=== PATIENT | female | born 1965 | race Caucasian/White ===

== ENCOUNTER 2022-02-01 08:59 | Inpatient (IN) ==
[2022-02-01 09:28] LABS: Hemoglobin 9.4 g/dL (12.0-16.0); Mean Corpuscular Hemoglobin 30.8 pg (25-34); Mean Corpuscular Hgb Conc 33.6 g/dL (32-36); Mean Corpuscular Volume 91.8 fL (80-100); Mean Platelet Volume 9.8 fL (7.4-10.4); Nucleated RBC # (auto) 0.03 K/uL (0-0); Nucleated RBC % (auto) 0.3 %; Platelet Count 336 K/uL (130-400); RDW Coefficient of Variation 17.2 % (11.5-14.5); RDW Standard Deviation 57.9 fL (36.4-46.3); Red Blood Count 3.05 M/uL (4.2-5.4); White Blood Count 9.87 K/uL (4.8-10.8)
[2022-02-01] MEDS ORDERED: SODIUM CHLORIDE 0.9% 1000ML 1,000 ML IV SCH ×2 (09:30→19:56)
--- NOTE | 2022-02-01 09:37 | XRay Report ---
XR chest 1V portable CLINICAL HISTORY: weakness COMPARISON STUDY: No previous studies for comparison. FINDINGS: Lung volumes are normal. Lungs are clear. There is no pneumothorax or pleural effusion. Car diac size is normal. Mediastinal contours are normal. There is no evidence for pulmonary edema. Note is made of a possible displaced fracture of a lateral left lower rib, possibly the eighth rib. IMPRESSION: 1. No acute cardiopulmonary findings. 2. Possible displaced lateral left eighth rib fracture. ACT 112: Negative or not required by law. Electronically signed by: Delbert Ratliff M.D. 02/01/2022 9:36 AM
[2022-02-01 09:52] LABS: Basophils # (auto) 0.01 K/uL (0-0.2); Basophils % (auto) 0.1 %; Eosinophils # (auto) 0.05 K/uL (0-0.5); Eosinophils % (auto) 0.5 %; Immature Granulocytes # (auto) 0.03 K/uL (0.00-0.02); Immature Granulocytes % (auto) 0.3 %; Lymphocytes # (auto) 1.26 K/uL (1.2-3.4); Lymphocytes % (auto) 12.8 %; Monocytes # (auto) 0.85 K/uL (0.11-0.59); Monocytes % (auto) 8.6 %; Neutrophils # (auto) 7.67 K/uL (1.4-6.5); Neutrophils % (auto) 77.7 %
--- NOTE | 2022-02-01 10:05 | CT Scan Report ---
CT OF THE HEAD WITHOUT CONTRAST CLINICAL HISTORY: weakness of extremities, falls w [facility] 3 wks ago COMPARISON STUDY: No previous studies for comparison. CT DOSE: 958.25 mGy.cm TECHNIQUE: Helical axial images of the head were obtained without IV contrast. Automated exposure con trol was utilized for the study. A dose lowering technique was utilized adhering to the principles o f ALARA. FINDINGS: No acute intracranial hemorrhage or midline shift is present. Ventricular system is unremar kable. Basal cisterns are patent. There is mild asymmetric prominence of the extra-axial space overly ing the right frontal lobe. This measures 4 mm in thickness. Exam is mildly compromised by motion art ifact. No acute calvarial fracture is identified. IMPRESSION: 1. No acute intracranial hemorrhage. 2. Mild asymmetric prominence of the extra-axial space overlying the right frontal lobe. Although non specific, this could reflect a small chronic subdural hematoma or subdural hygroma. Short-term follow -up head CT in 48 to 72 hours is recommended for reevaluation. No midline shift. No mass effect. 3. No calvarial fracture. ACT 112: Negative or not required by law. Electronically signed by: Delbert Ratliff M.D. 02/01/2022 10:02 AM
[2022-02-01] MEDS ORDERED: MULTI-VITAMIN INFUSION 10 ML, THIAMINE HCL 100 MG, FOLIC ACID 1 MG in SODIUM CHLORIDE 0... IV ONE (10:09)
[2022-02-01 10:29] LABS: Alanine Aminotransferase 26 U/L (7-52); Albumin Globulin Ratio 1.1 (0.9-2); Albumin Level 3.7 gm/dl (3.4-5.0); Alkaline Phosphatase 139 U/L (34-104); Anion Gap 24 (3-11); Blood Urea Nitrogen 45 mg/dl (6-23); Calcium 8.8 mg/dl (8.5-10.1); Carbon Dioxide 20 mmol/L (21-32); Chloride 91 mmol/L (98-107); Creatinine Clr Calc Pharmacy 33.9 ml/min; Est GFR (African American) 36.1 ml/min; Est GFR (Non-African American) 31.1 ml/min; Globulin 3.5 gm/dl (2.5-4.0); Glucose 184 mg/dl (70-99(Fasting)); Magnesium 1.6 mg/dl (1.7-2.4); Sodium 135 mmol/L (136-145); Total Protein 7.2 gm/dl (6.0-8.3); Troponin I High Sensitivity 13.7 pg/ml (0-14)
[2022-02-01 10:33] LABS: Thyroid Stimulating Hormone 5.721 uIu/ml (0.300-4.500)
[2022-02-01 10:48] LABS: Influenza A virus by PCR Negative (Neg); Influenza B virus by PCR Negative (Neg); RSV by PCR Negative (Neg); SARS CoV2 RNA(COVID-19) InHosp NEGATIVE (Negative)
[2022-02-01 11:06] LABS: T4 Free Thyroxine 1.42 ng/dl (0.61-1.60)
[2022-02-01 12:12] LABS: INR 1.1 (0.9-1.1); Partial Thromboplastin Ratio 0.8; Partial Thromboplastin Time 21.8 Seconds (21.0-31.0); Prothrombin Time 11.4 Seconds (9.0-12.0)
[2022-02-01 12:50] LABS: Potassium 2.9 mmol/L (3.5-5.1)
[2022-02-01] MEDS: POTASSIUM CHLORIDE / WTR 10 MEQ/100 ML PLCT IV SCH ×4 (13:16→22:10)
--- NOTE | 2022-02-01 13:43 | History & Physical Report ---
Date of Service February 01, 2022 Assessment & Plan (1) High anion gap metabolic acidosis: Plan: Recent falls with generalized weakness. Workup revealed HAGMA with delta gap consistent with additional metabolic alkalosis. Lactate was elevated and likely the cause of her acid base issues. No OG present. UDS was negative. Doubt exogenous alcohol ingestion. Salicylate level pending. As biguanides can cause a lactic acidosis, and she just started her metformin one week ago, this may have caused the lactic acidosis and subsequent symptoms especially in the setting of IVA. She also recently started Topamax and carbonic anhydrase inhibitors also have metabolic acidosis and hypokalemia as a side effect. Per black box warning on metformin, risk factors for lactic acidosis include chronic alcohol use. Stop metformin and consider alternative agent on discharge, correct IVA with IVF overnight. Consider nephro consult for consideration of hemodialysis if labs not improved by morning. 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 (2) Adverse effect of biguanide oral hypoglycemic drug: Plan: Plan as above. (3) Metabolic alkalosis: Plan: plan as above. Unable to obtain ABG on patient despite multiple tries. (4) IVA (acute kidney injury): Plan: Likely pre-renal etiology. Normal PO intake and no diarrhea or vomiting reported but hasn't been feeling well for three weeks. Cont with IVF and repeat in am. (5) Hypokalemia: Plan: Likely related to possible poor PO intake vs alcohol vs hypomagnesemia. Cont supplementation to correct overnight. Monitor on telemetry. (6) Hypomagnesemia: Plan: Replete and repeat in am. (7) Alcohol abuse: Plan: AWSS monitoring scale in case of withdrawal which is not present. Last drink was reported 3 weeks ago. Banana bag given today and started daily thiamine and folic acid. Encouraged to stay sober. (8) Traumatic closed fracture of one rib of left side with minimal displacement with routine healing: Plan: Related to recent falls at home. PT/OT to assess abilities after electrolyte and acid/base correction. Pain control as needed. (9) Hypertension: Plan: chronic, losartan held in setting of IVA. Patient became hypotensive on the floor, responding to IVF. Cont to hold meds and trend BP q4h (10) DMII (diabetes mellitus, type 2): Plan: chronic, hold metformin, start basal/bolus insulin in hospital. A1C in am. (11) Migraine: Plan: Takes daily Topamax which she started last week, also. Hold Topamax in light of adverse effect of CAIs on worsening acidosis. This may also be causing/contribu ting to her hypokalemia. She unfortunately already received her evening dose prior to placing the order to hold. (12) Dyslipidemia: Plan: chronic, stable. Cont Simvastatin (13) Acid reflux: Plan: chronic, stable. Cont omeprazole. Notably PPIs can cause hypomagnesemia. (14) Anemia: Plan: Uncertain baseline as she is not seen in this area for primary care. She reports a normal colonoscopy 5 years ago. Iron studies ordered. No overt bleeding or indication for transfusion. Cont to follow. (15) Chronic subdural hematoma: Plan: Traumatic subdural hematoma from a fall 3 weeks ago, chronic appearing on imaging. Repeat head CT in 48 hours recommended. Currently she has no gross focal neurologic deficits and her symptoms of weakness and paresthesias are likley related to her acid base disorder from her medications above. Hold daily ASA 81mg as no absolute indication at this time and do not want to contribute to head bleed. (16) DVT prophylaxis: Plan: SCDs, hold chemoprophylaxis in setting of recent traumatic head bleed. Full Code Dispo-telemetry, then per PT/OT recommendations. Tiffany Stringer DO [facility] History of Present Illness Chief Complaint: weakness Primary Care Provider: Bran Sanders DO 56 yo F with fall one week ago, visiting from out of town presented with weakness. She is an alcoholic who reports quitting 3 weeks ago. Since that time she reports falling with trauma to her head 3 weeks ago, and then became progressively weak with numbness in her fingertips bilaterally and started using a walker to get around. This morning she fell again prompting presentation to the ER. After the fall today she cannot straighten her left elbow. She denies any stroke like symptoms including no blurred vision, headache, unilateral weakness, or speech or word finding issues. She reports starting her medications back again one week ago including losartan, metformin, topamax and ambien. Workup reveals high anion gap metabolic acidosis. Hypokalemia with K 2.9. Head CT with possible chronic subdural hematoma vs hygroma. CXR with possible displaced eighth rib. Lactate elevated. Possible ingestion toxic alcohol? IVA present. She has anemia with uncertain baseline H/H. She denies any active bleeding at this time. Allergies Allergy/AdvReac Type Severity Reaction Status Date / Time morphine Allergy Intermediate hives/vomit Unverified 02/01/22 12:43 ing Home Medications Medication Instructions Recorded Confirmed Type aspirin 81 mg tablet,delayed 81 mg PO QAM 02/01/22 02/01/22 History release diclofenac sodium 100 mg 100 mg PO HS 02/01/22 02/01/22 History tablet,extended release 24 hr galcanezumab-gnlm 120 mg/mL 120 mg SUBCUT MONTHLY 02/01/22 02/01/22 History subcutaneous pen injector (Emgality Pen) losartan 50 mg tablet 50 mg PO QAM 02/01/22 02/01/22 History metformin 500 mg tablet,extended 500 mg PO BID 02/01/22 02/01/22 History release 24 hr omeprazole 20 mg capsule,delayed 20 mg PO BID 02/01/22 02/01/22 History release simvastatin 40 mg tablet 40 mg PO HS 02/01/22 02/01/22 History topiramate 50 mg tablet 50 mg PO HS 02/01/22 02/01/22 History zolpidem 10 mg tablet 10 mg PO HS PRN 02/01/22 02/01/22 History Past Med/Surg History Medical History Acid reflux Alcohol abuse DMII (diabetes mellitus, type 2) Dyslipidemia Hypertension Migraine Surgical History H/O: hysterectomy S/P lateral meniscal repair right knee Family History Father Diabetes Mother Diabetes Social History Smoking Status: Never smoker Hx Alcohol Use: Yes Alcohol type: hard liquor Alcohol type Comment: vodka Alcohol Intake Frequency Comment: half bottle vodka per day Hx Substance Use: No Preferred Language: Lao Communication Ability: Effective Stone Breaker Required: No Beliefs That Will Affect Care: None marital status: Current Living Situation: Spouse Current Living Situation Comment: home with spouse Other Information That Helps Us Care for You: No Feels Safe at Home: Yes Safety Concerns: Feels Safe At This Time Assistive Devices: Walker Review of Systems Review of Systems: All systems were reviewed and negative except as indicated above in HPI. Physical Exam Physical Exam: CONSTITUTIONAL: WNWD, vitals as above, generally well- appearing, NAD EYES: EOMI bilaterally, PERRL, normal conjunctivae, no scleral icterus ENT: external ear and nose normal, oropharynx clear NECK: trachea midline, RESPIRATORY: clear to auscultation bilaterally, no crackles, rales or wheezes, normal respiratory effort CARDIOVASCULAR: regular rate and rhythm, S1 and 2 heard without murmurs, gallops or rubs, no JVD, no peripheral edema CHEST: inspection of chest was normal GASTROINTESTINAL: soft, nontender, ND, no guarding MUSCULOSKELETAL: strength 5/5 throughout, cannot straighten her left elbow completely, head is normocephalic and atraumatic, normal palpation of chest wall without tenderness SKIN: warm and dry, erythematous, scaly rash under her left breast that is not painful. Multiple areas of deep purple ecchymosis, hortencia on her right upper arm, and across her chest, and on her right patella. NEUROLOGIC: No facial palsy, no dysarthria. Touch, pain and proprioception normal. CN 2-12 grossly intact, no sensory deficit, normal cognition, normal speech, no tremor PSYCHIATRIC: alert cooperative and oriented to person, place and time. Euthymic mood, makes good eye contact, language grossly intact, recent and r emote memory grossly intact. Results & Data Results & Data ([facility]) Vital Signs (Past 12 Hours) Vital Signs Temp Pulse Resp BP Pulse Ox 02/01/22 13:00 68 16 113/72 99 02/01/22 12:00 93 H 17 120/68 100 02/01/22 11:19 79 16 113/72 98 02/01/22 11:00 82 18 113/72 100 02/01/22 10:16 98 H 24 116/74 99 02/01/22 09:30 106 H 18 101/66 97 02/01/22 09:22 101 H 20 96 02/01/22 09:13 37.3 C 107 H 20 96/65 L 100 Laboratory Results Short CBC 02/01/22 Range/Units Unknown WBC 9.87 (4.8-10.8) K/uL Hgb 9.4 L (12.0-16.0) g/dL Hct 28.0 L (37-47) % Plt Count 336 (130-400) K/uL BMP 02/01/22 02/01/22 11:15 Unknown Sodium 135 L Potassium 2.9 L TNP Chloride 91 L Carbon Dioxide 20 L BUN 45 H Creatinine 1.80 H Glucose 184 H Calcium 8.8 Liver Function 02/01/22 02/01/22 Range/Units 11:15 Unknown Total Bilirubin 1.0 (0.2-1.0) mg/dl AST 64 H TNP (13-39) U/L ALT 26 (7-52) U/L Alkaline Phosphatase 139 H (34-104) U/L Albumin 3.7 (3.4-5.0) gm/dl Diagnostic Findings Head CT 02/01/22 09:21 CT OF THE HEAD WITHOUT CONTRAST CLINICAL HISTORY: weakness of extremities, falls w [facility] 3 wks ago COMPARISON STUDY: No previous studies for comparison. CT DOSE: 958.25 mGy.cm TECHNIQUE: Helical axial images of the head were obtained without IV contrast. Automated exposure control was utilized for the study. A dose lowering technique was utilized adhering to the principles of ALARA. FINDINGS: No acute intracranial hemorrhage or midline shift is present. Ventricular system is unremarkable. Basal cisterns are patent. There is mild asymmetric prominence of the extra-axial space overlying the right frontal lobe. This measures 4 mm in thickness. Exam is mildly compromised by motion artifact. No acute calvarial fracture is identified. IMPRESSION: 1. No acute intracranial hemorrhage. 2. Mild asymmetric prominence of the extra-axial space overlying the right frontal lobe. Although nonspecific, this could reflect a small chronic subdural hematoma or subdural hygroma. Short-term follow-up head CT in 48 to 72 hours is recommended for reevaluation. No midline shift. No mass effect. 3. No calvarial fracture. ACT 112: Negative or not required by law. Electronically signed by: Delbert Ratliff M.D. 02/01/2022 10:02 AM Chest X-Ray 02/01/22 09:22 XR chest 1V portable CLINICAL HISTORY: weakness COMPARISON STUDY: No previous studies for comparison. FINDINGS: Lung volumes are normal. Lungs are clear. There is no pneumothorax or pleural effusion. Cardiac size is normal. Mediastinal contours are normal. There is no evidence for pulmonary edema. Note is made of a possible displaced fracture of a lateral left lower rib, possibly the eighth rib. IMPRESSION: 1. No acute cardiopulmonary findings. 2. Possible displaced lateral left eighth rib fracture. ACT 112: Negative or not required by law. Electronically signed by: Delbert Ratliff M.D. 02/01/2022 9:36 AM Code Status & VTE Plan VTE Prophylaxis Plan VTE Prophylaxis will be ordered: Yes
[2022-02-01 13:46] LABS: Appearance Urine Clear (Clear); Bacteria Urine Automated Negative (Negative); Bilirubin Urine Negative (Negative); Blood Urine Negative (Negative); Color Urine Yellow; Epithelial Cell Urine Auto 20-30 /lpf (0-5); Glucose Urine UA Negative (Negative); Ketones Urine Trace (Negative); Leukocyte Esterase Urine 1+ (Negative); Nitrite Urine Negative (Negative); Protein Urine Negative (Negative); RBC Urine Automated 0-4 /hpf (0-4); Specific Gravity Urine 1.013 (1.000-1.030); Urobilinogen Urine Negative (Negative)
[2022-02-01 14:05] LABS: Amphetamines+Metham, Urine Neg (Neg); Barbiturates, Urine Neg (Neg); Benzodiazepine, Urine Neg (Neg); Cocaine, Urine Neg (Neg); MDMA (Ecstacy), Urine Neg (Neg); Methadone, Urine Neg (Neg); Opiate, Urine Neg (Neg); Phencyclidine, Urine Neg (Neg)
[2022-02-01] MEDS ORDERED: MAGNESIUM SULFATE / D5W 1 GM/100 ML BAG IV STA (14:59)
[2022-02-01] MEDS ORDERED: POTASSIUM CHLORIDE CRTAB 20 MEQ TABCR PO STA ×3 (15:24→20:51)
[2022-02-01] MEDS ORDERED: GLUCAGON FOR INJ 1 MG VIAL SQ PRN (15:25)
[2022-02-01] MEDS ORDERED: GLUCOSE 10 TABS/TUBE PO PRN (15:25)
[2022-02-01] MEDS ORDERED: DEXTROSE 50% 50 ML SYRINGE IV PRN (15:25)
[2022-02-01] MEDS ORDERED: LORazepam 2 MG/1 ML VIAL IV PRN (15:25)
[2022-02-01] MEDS ORDERED: GLUCOSE 40% GEL 15 GM TUBE PO PRN (15:25)
[2022-02-01] MEDS ORDERED: CARBOHYDRATES FOR HYPOGLYCEMIA PO PRN (15:25)
[2022-02-01] MEDS: SODIUM CHLORIDE 0.9% 1000ML 1,000 ML IV SCH ×2 (15:56→23:36)
--- NOTE | 2022-02-01 15:56 | XRay Report ---
XR elbow LT 2V CLINICAL HISTORY: fall this am, cannot straighten, rule out fracture. Left elbow pain. COMPARISON STUDY: None. FINDINGS: No fracture or dislocation within the left elbow. No significant elbow effusion. Soft tissu es are unremarkable. IMPRESSION: No fracture or dislocation within the left elbow. ACT 112: Negative or not required by law. Electronically signed by: John Verde M.D. 02/01/2022 3:54 PM
--- NOTE | 2022-02-01 15:57 | XRay Report ---
XR wrist LT w scaphoid CLINICAL HISTORY: foosh injury with fall, rule out fracture. Left wrist pain. COMPARISON STUDY: None. FINDINGS: No fracture or dislocation within the left wrist. Mild soft tissue swelling. 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 IMPRESSION: No fracture or dislocation within the left wrist. ACT 112: Negative or not required by law. Electronically signed by: John Verde M.D. 02/01/2022 3:56 PM
[2022-02-01 16:23] LABS: BUN Creatinine Ratio 28.6 (10-20); Creatinine Clr Calc Pharmacy 43.6 ml/min; Est GFR (African American) 48.9 ml/min; Est GFR (Non-African American) 42.2 ml/min; Phosphorus 2.3 mg/dl (2.5-4.9); Potassium 2.4 mmol/L (3.5-5.1)
[2022-02-01] MEDS: MAGNESIUM SULFATE / D5W 1 GM/100 ML BAG IV SCH ×2 (16:57→18:46)
[2022-02-01] MEDS: INSULIN ASPART PER UNIT SC SCH ×2 (17:34→21:28)
[2022-02-01 18:32] LABS: Chloride Random Urine < 15 mmol/L; Potassium Random Urine 17.2 mmol/L; Sodium Random Urine 12 mmol/L
[2022-02-01] MEDS ORDERED: SODIUM CHLORIDE 0.9% 1000ML 500 ML IV ONE (18:35)
--- NOTE | 2022-02-01 19:02 | Emergency Department Note ---
Impression & Plan Hypokalemia, High anion gap metabolic acidosis, Traumatic closed fracture of one rib of left side with minimal displacement with routine healing, IVA (acute kidney injury), Metabolic alkalosis ED Provider Note CHIEF COMPLAINT: Fall, weakness, tingling of the upper and lower extremities HISTORY OF PRESENT ILLNESS: This 56 yo female patient presents to the emergency department with complaints of a fall, weakness of the upper and lower extremities with tingling to the toes bilaterally. Patient states 3 weeks ago she fell and hit her head while she was in the shower. She believes that she lost consciousness at that time. She woke up and was able to get herself into the bed. She states she is visiting from out of town to help her mother. She states she came thinking she was going to be here for 2 days and ran out of her medications. She was off of her medications for at least 1 week until she had her drive them to the area. Patient states she does drink vodka daily, approximately one half of a bottle with seltzer water. She states she stopped drinking vodka suddenly but denies any withdrawal symptoms. She admits to some vomiting and diarrheal type symptoms but felt as though her body was just "adjusting to being back on the medications." Patient's here today because she had another fall. She did hit her head but denies loss of consciousness. She denies any neck or upper back pain. Patient denies any ingestions of other substances including alcohol use. She denies any fever, chest pain, shortness of breath, chest pain, abdominal pain and urinary symptoms. REVIEW OF SYSTEMS: A review of systems was performed with positives and pertinent negatives listed in the history of present illness. 10 systems were reviewed and are otherwise negative. ALLERGIES: see below MEDICATIONS: see below PMH: see below SOCIAL HISTORY: see below DDx: Infection, dehydration, metabolic abnormality, hypo/hyperglycemia, electrolyte disturbance, anemia, hypoxia, cardiac sources, intracerebral event, toxicologic, neurologic, as well as other pathologies. PHYSICAL EXAM: Vital signs reviewed. General: Chronically ill appearing 56 yo female, in no significant distress. HEENT: No scleral icterus, PERRLA, neck supple. Atraumatic. Cardiovascular: Regular rate and rhythm, no extra sounds. Pulmonary: Clear to auscultation bilaterally, normal work of breathing. Abdomen: Soft, nontender, nondistended, positive bowel sounds. Musculoskeletal: Atraumatic, no peripheral edema. Neurologic: Patient awake alert and oriented x 3, speech is clear. Equal strength in all 4 extremities. Cranial nerves II through XII are grossly intact. Skin: Warm, dry, yeast dermatitis type rash under the left breast. Bruising noted to the left anterior chest wall. Additional bruising noted to the left lower extremity anteriorly EMERGENCY DEPARTMENT COURSE/MDM: This patient was evaluated and appeared to be in no significant distress. Vital signs are noted to be stable. Patient's physical examination reveals a fairly deconditioned woman. IV access was obtained and laboratory work was drawn. Given her history of daily alcohol intake the patient was given a banana bag. CT imaging of the head was performed and reveals a small subdural versus hygroma. It seems to be clinically insignificant at this time however repeat CT is recommended in 48 to 72 hours to ensure stability. Patient's laboratory work is concerning for elevated lactate of 2.3, potassium of 2.9, magnesium of 1.6 and a phosphorus of 2.3, anemia with hgb of 9.4, with an elevated anion gap and presumed IAV. Pt has no previous records available. Given the above, patient was asked about toxic alcohol ingestion which she denied. Urine and serum osmoles were added to the patient's laboratory work. Patient was repleted with IV potassium chloride. Case was discussed with the [facility] hospitalist to has requested a blood gas. The etiology of the patient's anion gap elevation, weakness and electrolyte disturbance is unclear at this time. MONITORING: An order for cardiac monitoring was placed and the patient is noted to be in a sinus tachycardia at 106 beats per minute. RADIOLOGY: See below EKG: Sinus tachycardia 109 bpm. Prolonged QTC interval at [address] and T wave abnormality. No PVC, no PAC. No previous for comparison. DISPOSITION: Admit Past Med/Surg History Medical History Acid reflux Alcohol abuse DMII (diabetes mellitus, type 2) Dyslipidemia Hypertension Migraine Surgical History H/O: hysterectomy S/P lateral meniscal repair right knee Family History Father Diabetes Mother Diabetes Social History Smoking Status: Never smoker Hx Alcohol Use: Yes Alcohol type: hard liquor Alcohol type Comment: vodka Alcohol Intake Frequency Comment: half bottle vodka per day Hx Substance Use: No Preferred Language: Slovenian Communication Ability: Effective Anesthesiologist Assistant Certified Required: No Beliefs That Will Affect Care: None marital status: Current Living Situation: Spouse Current Living Situation Comment: home with spouse Other Information That Helps Us Care for You: No Feels Safe at Home: Yes Safety Concerns: Feels Safe At This Time Assistive Devices: Walker Allergies Allergies Allergy/AdvReac Type Severity Reaction Status Date / Time morphine Allergy Intermediate hives/vomit Unverified 02/01/22 12:43 ing Home Meds Home Medications Medication Instructions Recorded Confirmed aspirin 81 mg tablet,delayed 81 mg PO QAM 02/01/22 02/01/22 release diclofenac sodium 100 mg 100 mg PO HS 02/01/22 02/01/22 tablet,extended release 24 hr galcanezumab-gnlm 120 mg/mL 120 mg SUBCUT MONTHLY 02/01/22 02/01/22 subcutaneous pen injector (Emgality Pen) losartan 50 mg tablet 50 mg PO QAM 02/01/22 02/01/22 metformin 500 mg tablet,extended 500 mg PO BID 02/01/22 02/01/22 release 24 hr omeprazole 20 mg capsule,delayed 20 mg PO BID 02/01/22 02/01/22 release simvastatin 40 mg tablet 40 mg PO HS 02/01/22 02/01/22 topiramate 50 mg tablet 50 mg PO HS 02/01/22 02/01/22 zolpidem 10 mg tablet 10 mg PO HS PRN 02/01/22 02/01/22 Results & Data (ED) Vital Signs Vital Signs - 24 hr 02/01/22 09:13 02/01/22 09:22 02/01/22 09:30 Temperature 37.3 C Temperature Source Oral Pulse Rate 107 H 101 H 106 H Pulse Rate from SpO2 Sensor 107 H Pulse Rhythm Regular Regular Pulse Strength Normal Respiratory Rate 20 20 18 Respiratory Effort / Characteristics Non-Labored Spontaneous Respiratory Depth Normal Respiratory Pattern Regular Blood Pressure 96/65 L 101/66 Blood Pressure Mean 75 77 Blood Pressure Position Sitting Pulse Oximetry 100 96 97 Oxygen Delivery Method Room Air Room Air Sepsis Recent Fever Within 48 Hours No Sepsis New/Unexplained Change in Mental Status No Sepsis Action Taken by Nursing No Action Required 02/01/22 10:16 02/01/22 11:00 02/01/22 11:19 Temperature Temperature Source Pulse Rate 98 H 82 79 Pulse Rate from SpO2 Sensor 101 H Pulse Rhythm Pulse Strength Respiratory Rate 24 18 16 Respiratory Effort / Characteristics Respiratory Depth Respiratory Pattern Blood Pressure 116/74 113/72 113/72 Blood Pressure Mean 88 85 85 Blood Pressure Position Pulse Oximetry 99 100 98 Oxygen Delivery Method Room Air Sepsis Recent Fever Within 48 Hours Sepsis New/Unexplained Change in Mental Status Sepsis Action Taken by Nursing 02/01/22 12:00 02/01/22 13:00 Temperature Temperature Source Pulse Rate 93 H 68 Pulse Rate from SpO2 Sensor 91 H Pulse Rhythm Pulse Strength Respiratory Rate 17 16 Respiratory Effort / Characteristics Respiratory Depth Respiratory Pattern Blood Pressure 120/68 113/72 Blood Pressure Mean 85 85 Blood Pressure Position Pulse Oximetry 100 99 Oxygen Delivery Method Sepsis Recent Fever Within 48 Hours Sepsis New/Unexplained Change in Mental Status Sepsis Action Taken by Long-Term Medications Current Medication List: was personally reviewed by me Laboratory Data Attestation: I reviewed the patient's lab results. Result diagrams: 02/01/22 Unknown 02/01/22 Unknown Lab Results 02/01/22 02/01/22 02/01/22 Range/Units 09:25 09:25 10:02 PT (9.0-12.0) Seconds INR (0.9-1.1) APTT (21.0-31.0) Seconds PTT Ratio Potassium (3.5-5.1) mmol/L Osmolality 297 (280-300) mOsm/kg Lactate (0.4-2.0) mmol/L AST (13-39) U/L Total Creatine Kinase 53 (26-192) U/L Urine Color Urine Appearance (Clear) Urine pH (4.5-7.5) Ur Specific [place] (1.000-1.030) Urine Protein (Negative) Urine Glucose (UA) (Negative) Urine Ketones (Negative) Urine Blood (Negative) Urine Nitrite (Negative) Urine Bilirubin (Negative) Urine Urobilinogen (Negative) Ur Leukocyte Esterase (Negative) Urine WBC (Auto) (0-5) /hpf Urine RBC (Auto) (0-4) /hpf U Hyaline Cast (Auto) (0-5) /lpf U Epithel Cells (Auto) (0-5) /lpf Urine Bacteria (Auto) (Negative) Urine Osmolality (500-800) mOsm/kg Urine Opiates Screen (Neg) Ur Methadone, Qual (Neg) Urine Barbiturates (Neg) Ur Phencyclidine (PCP) (Neg) U Amphetamin/Meth Scrn (Neg) MDMA (Ecstasy) Screen (Neg) U Benzodiazepines Scrn (Neg) Ur Cocaine Metabolite (Neg) U Marijuana (THC) Screen (Neg) Ethyl Alcohol mg/dL (<10.0) mg/dl SARS-CoV-2 (PCR) NEGATIVE (Negative) Influenza Type A (PCR) Negative (Neg) Influenza Type B (PCR) Negative (Neg) RSV (RT-PCR) Negative (Neg) 02/01/22 02/01/22 02/01/22 Range/Units 11:15 11:15 11:15 PT 11.4 (9.0-12.0) Seconds INR 1.1 (0.9-1.1) APTT 21.8 (21.0-31.0) Seconds PTT Ratio 0.8 Potassium 2.9 L (3.5-5.1) mmol/L Osmolality (280-300) mOsm/kg Lactate (0.4-2.0) mmol/L AST 64 H (13-39) U/L Total Creatine Kinase (26-192) U/L Urine Color Urine Appearance (Clear) Urine pH (4.5-7.5) Ur Specific [place] (1.000-1.030) Urine Protein (Negative) Urine Glucose (UA) (Negative) Urine Ketones (Negative) Urine Blood (Negative) Urine Nitrite (Negative) Urine Bilirubin (Negative) Urine Urobilinogen (Negative) Ur Leukocyte Esterase (Negative) Urine WBC (Auto) (0-5) /hpf Urine RBC (Auto) (0-4) /hpf U Hyaline Cast (Auto) (0-5) /lpf U Epithel Cells (Auto) (0-5) /lpf Urine Bacteria (Auto) (Negative) Urine Osmolality (500-800) mOsm/kg Urine Opiates Screen (Neg) Ur Methadone, Qual (Neg) Urine Barbiturates (Neg) Ur Phencyclidine (PCP) (Neg) U Amphetamin/Meth Scrn (Neg) MDMA (Ecstasy) Screen (Neg) U Benzodiazepines Scrn (Neg) Ur Cocaine Metabolite (Neg) U Marijuana (THC) Screen (Neg) Ethyl Alcohol mg/dL < 10.0 (<10.0) mg/dl SARS-CoV-2 (PCR) (Negative) Influenza Type A (PCR) (Neg) Influenza Type B (PCR) (Neg) RSV (RT-PCR) (Neg) 02/01/22 02/01/22 02/01/22 Range/Units 11:24 13:28 13:28 PT (9.0-12.0) Seconds INR (0.9-1.1) APTT (21.0-31.0) Seconds PTT Ratio Potassium (3.5-5.1) mmol/L Osmolality (280-300) mOsm/kg Lactate 2.3 H* (0.4-2.0) mmol/L AST (13-39) U/L Total Creatine Kinase (26-192) U/L Urine Color Urine Appearance (Clear) Urine pH (4.5-7.5) Ur Specific [place] (1.000-1.030) Urine Protein (Negative) Urine Glucose (UA) (Negative) Urine Ketones (Negative) Urine Blood (Negative) Urine Nitrite (Negative) Urine Bilirubin (Negative) Urine Urobilinogen (Negative) Ur Leukocyte Esterase (Negative) Urine WBC (Auto) (0-5) /hpf Urine RBC (Auto) (0-4) /hpf U Hyaline Cast (Auto) (0-5) /lpf U Epithel Cells (Auto) (0-5) /lpf Urine Bacteria (Auto) (Negative) Urine Osmolality 380 L (500-800) mOsm/kg Urine Opiates Screen Neg (Neg) Ur Methadone, Qual Neg (Neg) Urine Barbiturates Neg (Neg) Ur Phencyclidine (PCP) Neg (Neg) U Amphetamin/Meth Scrn Neg (Neg) MDMA (Ecstasy) Screen Neg (Neg) U Benzodiazepines Scrn Neg (Neg) Ur Cocaine Metabolite Neg (Neg) U Marijuana (THC) Screen Neg (Neg) Ethyl Alcohol mg/dL (<10.0) mg/dl SARS-CoV-2 (PCR) (Negative) Influenza Type A (PCR) (Neg) Influenza Type B (PCR) (Neg) RSV (RT-PCR) (Neg) 02/01/22 Range/Units 13:28 PT (9.0-12.0) Seconds INR (0.9-1.1) APTT (21.0-31.0) Seconds PTT Ratio Potassium (3.5-5.1) mmol/L Osmolality (280-300) mOsm/kg Lactate (0.4-2.0) mmol/L AST (13-39) U/L Total Creatine Kinase (26-192) U/L Urine Color Yellow Urine Appearance Clear (Clear) Urine pH 5.0 (4.5-7.5) Ur Specific [place] 1.013 (1.000-1.030) Urine Protein Negative (Negative) Urine Glucose (UA) Negative (Negative) Urine Ketones Trace H (Negative) Urine Blood Negative (Negative) Urine Nitrite Negative (Negative) Urine Bilirubin Negative (Negative) Urine Urobilinogen Negative (Negative) Ur Leukocyte Esterase 1+ H (Negative) Urine WBC (Auto) 10-30 H (0-5) /hpf Urine RBC (Auto) 0-4 (0-4) /hpf U Hyaline Cast (Auto) 1-5 (0-5) /lpf U Epithel Cells (Auto) 20-30 H (0-5) /lpf Urine Bacteria (Auto) Negative (Negative) Urine Osmolality (500-800) mOsm/kg Urine Opiates Screen (Neg) Ur Methadone, Qual (Neg) Urine Barbiturates (Neg) Ur Phencyclidine (PCP) (Neg) U Amphetamin/Meth Scrn (Neg) MDMA (Ecstasy) Screen (Neg) U Benzodiazepines Scrn (Neg) Ur Cocaine Metabolite (Neg) U Marijuana (THC) Screen (Neg) Ethyl Alcohol mg/dL (<10.0) mg/dl SARS-CoV-2 (PCR) (Negative) Influenza Type A (PCR) (Neg) Influenza Type B (PCR) (Neg) RSV (RT-PCR) (Neg) Administered Medications Sodium Chloride (Nss 1000ml) 1,000 mls @ 100 mls/hr IV .Q10H ABIGAIL Stop: 03/03/22 15:24 Last Infusion: 02/01/22 18:37 Dose: 0 mls/hr Documented by: [id number] Admin: 02/01/22 15:56 Dose: 100 mls/hr Documented by: [id number] Magnesium Sulfate/Dextrose (Magnesium Sulfate / D5w) 1 gm in 100 mls @ 50 mls/hr IV Q2H ABIGAIL Stop: 02/01/22 20:29 Last Admin: 02/01/22 18:46 Dose: 50 mls/hr Documented by: [id number] Infusion: 02/01/22 18:46 Dose: 50 mls/hr Documented by: [id number] Admin: 02/01/22 16:57 Dose: 50 mls/hr Documented by: [id number] Insulin Aspart (Insulin Aspart Per Unit) 0 units SC ACHS [facility] Stop: 03/03/22 16:29 Last Admin: 02/01/22 17:34 Dose: 4 units Documented by: [id number] Cosigned by: [id number] Discontinued Medications Sodium Chloride (Nss 1000ml) 1,000 mls @ 999 mls/hr IV .Q1H1M ABIGAIL Stop: 02/01/22 10:30 Last Infusion: 02/01/22 11:18 Dose: 0 mls/hr Documented by: [id number] Admin: 02/01/22 09:35 Dose: 999 mls/hr Documented by: [id number] Multivitamins 10 ml/ Thiamine HCl 100 mg/ Folic Acid 1 mg/Sodium Chloride 1,011.2 mls @ 1,011.2 mls/hr IV .Q1H ONE Stop: 02/01/22 11:08 Last Infusion: 02/01/22 12:24 Dose: 0 mls/hr Documented by: [id number] Admin: 02/01/22 11:16 Dose: 1,011.2 mls/hr Documented by: [id number] Potassium Chloride (K Judd / Wtr) 10 meq in 100 mls @ 100 mls/hr IV Q1H [facility]; Protocol Stop: 02/01/22 15:14 Last Infusion: 02/01/22 16:57 Dose: 0 mls/hr Documented by: [id number] Admin: 02/01/22 15:56 Dose: 100 mls/hr Documented by: [id number] Infusion: 02/01/22 14:18 Dose: 0 mls/hr Documented by: [id number] Admin: 02/01/22 13:16 Dose: 100 mls/hr Documented by: [id number] Magnesium Sulfate/Dextrose (Magnesium Sulfate / D5w) 1 gm in 100 mls @ 50 mls/hr IV Q2H STA Stop: 02/01/22 16:58 Last Admin: 02/01/22 16:23 Dose: Not Given Documented by: [id number] Sodium Chloride (Nss 1000ml) 500 mls @ 999 mls/hr IV .Q31M ONE Stop: 02/01/22 19:05 Last Admin: 02/01/22 18:37 Dose: 999 mls/hr Documented by: [id number] Potassium Chloride (Potassium Chloride Crtab 20 Meq Tabcr) 40 meq PO NOW STA Stop: 02/01/22 15:25 Last Admin: 02/01/22 16:21 Dose: 40 meq Documented by: [id number] Imaging Data Radiologist's Impression: Head CT 02/01/22 09:21 CT OF THE HEAD WITHOUT CONTRAST CLINICAL HISTORY: weakness of extremities, falls w [facility] 3 wks ago COMPARISON STUDY: No previous studies for comparison. CT DOSE: 958.25 mGy.cm TECHNIQUE: Helical axial images of the head were obtained without IV contrast. Automated exposure control was utilized for the study. A dose lowering technique was utilized adhering to the principles of ALARA. FINDINGS: No acute intracranial hemorrhage or midline shift is present. Ventricular system is unremarkable. Basal cisterns are patent. There is mild asymmetric prominence of the extra-axial space overlying the right frontal lobe. This measures 4 mm in thickness. Exam is mildly compromised by motion artifact. No acute calvarial fracture is identified. IMPRESSION: 1. No acute intracranial hemorrhage. 2. Mild asymmetric prominence of the extra-axial space overlying the right frontal lobe. Although nonspecific, this could reflect a small chronic subdural hematoma or subdural hygroma. Short-term follow-up head CT in 48 to 72 hours is recommended for reevaluation. No midline shift. No mass effect. 3. No calvarial fracture. ACT 112: Negative or not required by law. Electronically signed by: Delbert Ratliff M.D. 02/01/2022 10:02 AM Chest X-Ray 02/01/22 09:22 XR chest 1V portable CLINICAL HISTORY: weakness COMPARISON STUDY: No previous studies for comparison. FINDINGS: Lung volumes are normal. Lungs are clear. There is no pneumothorax or pleural effusion. Cardiac size is normal. Mediastinal contours are normal. There is no evidence for pulmonary edema. Note is made of a possible displaced fracture of a lateral left lower rib, possibly the eighth rib. IMPRESSION: 1. No acute cardiopulmonary findings. 2. Possible displaced lateral left eighth rib fracture. ACT 112: Negative or not required by law. Electronically signed by: Delbert Ratliff M.D. 02/01/2022 9:36 AM Blood Pressure Blood Pressure Findings: Normal blood pressure Blood Pressure Disposition: did not require urgent referral Head Trauma GCS Score: 15 Discharge Plan Visit Data Chief Complaint: Weakness ED Provider: Jessi Oliver Discharge Problem: Hypokalemia, High anion gap metabolic acidosis, Traumatic closed fracture of one rib of left side with minimal displacement with routine healing, IVA (acute kidney injury), Metabolic alkalosis Patient Disposition: Admitted As Inpatient Discharge Instructions Interventions: ED Discharge Assessment Last Done: 02/01/22 15:10
[2022-02-01] MEDS: PANTOprazole 40 MG TAB PO SCH (20:46)
[2022-02-01] MEDS: INSULIN GLARGINE SOLOSTAR 100 UNITS/ML 3 ML PEN SC SCH (20:47)
[2022-02-01] MEDS ORDERED: TOPIRAMATE 50 MG TAB PO SCH (21:00)
[2022-02-01] MEDS ORDERED: DICLOFENAC SODIUM 25 MG TABDR PO SCH (21:00)
[2022-02-01 23:11] LABS: BUN Creatinine Ratio 27.6 (10-20); Calcium 7.5 mg/dl (8.5-10.1); Creatinine Clr Calc Pharmacy 46.2 ml/min; Est GFR (African American) 51.6 ml/min; Est GFR (Non-African American) 44.5 ml/min; Magnesium 2.2 mg/dl (1.7-2.4); Potassium 3.1 mmol/L (3.5-5.1)
[2022-02-02 06:28] LABS: Hematocrit (blood only) 22.9 % (37-47); Hemoglobin 7.3 g/dL (12.0-16.0); Mean Corpuscular Hemoglobin 29.7 pg (25-34); Mean Corpuscular Hgb Conc 31.9 g/dL (32-36); Mean Corpuscular Volume 93.1 fL (80-100); Mean Platelet Volume 9.1 fL (7.4-10.4); Platelet Count 247 K/uL (130-400); RDW Coefficient of Variation 17.3 % (11.5-14.5); RDW Standard Deviation 59.1 fL (36.4-46.3); Red Blood Count 2.46 M/uL (4.2-5.4); White Blood Count 8.31 K/uL (4.8-10.8)
[2022-02-02 06:49] LABS: Albumin Globulin Ratio 1.1 (0.9-2); Albumin Level 2.8 gm/dl (3.4-5.0); BUN Creatinine Ratio 28.7 (10-20); Bilirubin,Total 0.6 mg/dl (0.2-1.0); Calcium 7.6 mg/dl (8.5-10.1); Creatinine Clr Calc Pharmacy 53.9 ml/min; Est GFR (Non-African American) 53.5 ml/min; Globulin 2.6 gm/dl (2.5-4.0); Potassium 3.2 mmol/L (3.5-5.1); Total Protein 5.4 gm/dl (6.0-8.3)
[2022-02-02 06:50] LABS: Iron 40 mcg/dl (35-150); Total Iron Binding Cap Calc 220 mcg/dl (250-450); Transferrin (FE) Percent Satur 18 % (15-50); Unsaturated Iron Binding Cap 180 mcg/dl (155-355)
[2022-02-02 07:01] LABS: Folate (Folic Acid) 8.65 ng/ml (>5.38)
[2022-02-02] MEDS ORDERED: POTASSIUM CHLORIDE CRTAB 20 MEQ TABCR PO STA (08:30)
[2022-02-02] MEDS ORDERED: ASPIRIN 81 MG ECTAB PO SCH (09:00)
[2022-02-02] MEDS: PANTOprazole 40 MG TAB PO SCH ×2 (09:10→21:17)
[2022-02-02] MEDS: INSULIN ASPART PER UNIT SC SCH ×4 (09:10→21:13)
[2022-02-02] MEDS: FOLIC ACID 1 MG TAB PO SCH (09:10)
[2022-02-02] MEDS: INSULIN GLARGINE SOLOSTAR 100 UNITS/ML 3 ML PEN SC SCH ×2 (09:10→21:17)
[2022-02-02] MEDS: THIAMINE HCL 100 MG TAB PO SCH (09:10)
[2022-02-02] MEDS: SODIUM CHLORIDE 0.9% 1000ML 1,000 ML IV SCH ×2 (09:41→21:52)
--- NOTE | 2022-02-02 11:33 | Electrocardiogram Report ---
Test Reason : Blood Pressure : / mmHG Vent. Rate : 109 BPM Atrial Rate : 109 BPM P-R Int : 130 ms QRS Dur : 072 ms QT Int : 372 ms P-R-T Axes : 049 -04 059 degrees QTc Int : 500 ms Sinus tachycardia Left atrial enlargement Nonspecific ST and T wave abnormality Abnormal ECG No previous ECGs available Confirmed by Narinder Islas ([id number]) on 02/02/2022 11:33:12 AM Referred By: REFERRED SELF Confirmed By:Narinder Islas
--- NOTE | 2022-02-02 14:59 | Hospitalist Progress Note ---
Date of Service February 02, 2022 Assessment & Plan (1) High anion gap metabolic acidosis: Plan: Elevated Lactic acid Possible related to dehydration/Metformin present on admission with generalized weakness. Anion gap on admission peak 24 Unable to obtain ABG on admission despite multiple tried Alcohol level wnl, level less than 3 and UDS negative Will d/c Metformin at discharge Received IVF Anion gap close today at 9 (2) IVA (acute kidney injury): Plan: Creatinine on admission peak 1.8 Received IVF Creatinine 1.1 today Continue to hold Losartan (3) Electrolyte imbalance: Plan: Potassium on admission 2.4, K today 3.2 Magnesium on admission 1.6, Mag 2 today Phosphorus 2.3 today Potassium phosphate replaced (4) Alcohol abuse: Plan: No history of alcohol withdrawal or DT in the past Last drink was reported 3 weeks ago as per patient Continue thiamine and folic acid Counselling on alcohol cessation Will monitor closely for sign of alcohol withdrawal or DT (5) Traumatic closed fracture of one rib of left side with minimal displacement with routine healing: Plan: Related to recent falls due to alcohol abuse Will add incentive spirometry Continue PT/OT (6) Ambulatory dysfunction: Plan: Falls Continue PT/OT eval Might need inpatient rehab Continue fall precaution (7) Hypertension: Plan: BP stabe Continue to hold Losartan due to IVA Continue monitor BP (8) DMII (diabetes mellitus, type 2): Plan: Hba1c pending Continue to hold Metformin. Plan to Discontinue on discharge Continue lantus and novolog while inpatient Continue monitor BS (9) Migraine: Plan: Continue to hold Topamax in light of adverse effect of CAIs on worsening acidosis. Stable (10) Dyslipidemia: Plan: chronic, stable. Cont Simvastatin (11) Acid reflux: Plan: Continue omeprazole. (12) Anemia: Plan: Unknown baseline. Normal colonoscopy 5 years ago as per patient Hgb on admission 9.4 then dropped to 7.3 Dropped in hgb mostly due to dilution from the IVF received on admission Iron 40, TIBC 220 No sign of active bleeding Will hold aspirin Repeat Hgb 7.8 Continue monitor CBC (13) Chronic subdural hematoma: Plan: Traumatic subdural hematoma from a fall [address] head showed no acute intracranial hemorrhage. Mild asymmetric prominence of the extra-axial space overlying the right frontal lobe (Reviewed the image with Neuro ( No official consult). No intervention or treatment needed Will repeat CT head tomorrow Continue to hold aspirin (14) DVT prophylaxis: Plan: SCDs, hold chemoprophylaxis in setting of recent traumatic head bleed. Full Code Admission and Anticipated Discharge Date Admission Date: February 01, 2022 Subjective Pt was seen and examined for follow up weakness and ambulatory dysfunction Lying in bed with no acute distress Pt said that she has been feeling very weak for the last 2-3 weeks She said that she has not been drinking alcohol for the last 2 weeks Denies any chest pain, palpitation, dizziness and SOB Review of Systems Review of Systems: All systems reviewed & are unremarkable except as noted in Subjective Physical Exam Physical Exam: General- No acute distress Head- atraumatic Eyes- PERRL, EOMI, ENT- oropharynx clear Neck- supple, no JVD Lungs- clear to auscultation Heart- regular rhythm; no murmur Abdomen- normal bowel sounds, soft, nontender Extremities- no calf tenderness, L elbow tenderness and not able to fully extend it Neuro- alert, oriented x 3; PERRL, EOMI; no facial palsy; no dysarthria Skin- warm, erythematous, scaly rash Results & Data Results & Data ([facility]) Vital Signs (Past 12 Hours) Vital Signs Temp Pulse Pulse Resp BP Pulse Ox 02/02/22 13:40 64 02/02/22 11:43 36.8 C 79 18 104/72 99 02/02/22 07:17 36.6 C 77 18 120/78 98 02/02/22 03:21 36.3 C L 70 18 114/74 98
[2022-02-02] MEDS ORDERED: POTASSIUM PHOS 3 MMOL/1 ML INFUSION IV STA (15:01)
[2022-02-02 15:05] LABS: Hemoglobin 7.8 g/dL (12.0-16.0)
[2022-02-02] MEDS ORDERED: POTASSIUM PHOSPHATE 15 MMOL in SODIUM CHLORIDE 0.9% 250 ML IV ONE (15:15)
[2022-02-03 07:48] LABS: Estimated Average Glucose 120 mg/dl; Hemoglobin A1C 5.8 % (4.5-5.6)
[2022-02-03] MEDS: FOLIC ACID 1 MG TAB PO SCH (08:37)
[2022-02-03] MEDS: THIAMINE HCL 100 MG TAB PO SCH (08:37)
[2022-02-03] MEDS: PANTOprazole 40 MG TAB PO SCH ×2 (08:37→20:32)
[2022-02-03] MEDS: INSULIN ASPART PER UNIT SC SCH ×4 (08:37→20:33)
[2022-02-03] MEDS: INSULIN GLARGINE SOLOSTAR 100 UNITS/ML 3 ML PEN SC SCH ×2 (08:37→20:33)
[2022-02-03 09:41] LABS: Hemoglobin 7.8 g/dL (12.0-16.0); Mean Corpuscular Hemoglobin 30.6 pg (25-34); Mean Corpuscular Hgb Conc 32.5 g/dL (32-36); Mean Corpuscular Volume 94.1 fL (80-100); Mean Platelet Volume 8.9 fL (7.4-10.4); Platelet Count 248 K/uL (130-400); RDW Coefficient of Variation 17.9 % (11.5-14.5); Red Blood Count 2.55 M/uL (4.2-5.4)
[2022-02-03 10:49] LABS: BUN Creatinine Ratio 20.2 (10-20); Calcium 8.5 mg/dl (8.5-10.1); Creatinine Clr Calc Pharmacy 51.3 ml/min; Est GFR (African American) 59.5 ml/min; Est GFR (Non-African American) 51.4 ml/min; Phosphorus 3.5 mg/dl (2.5-4.9); Potassium 4.1 mmol/L (3.5-5.1)
--- NOTE | 2022-02-03 12:04 | CT Scan Report ---
CT head/brain wo con CLINICAL HISTORY: Follow-up asymmetric prominence of the extra-axial space on the right when compared to the left COMPARISON STUDY: 02/01/2022 CT DOSE: 537.48 mGy.cm TECHNIQUE: Standard CT of the Brain was performed without IV contrast. A dose lowering technique was utilized adhering to the principles of ALARA. FINDINGS: Extraaxial space: Compared to previous examination, there is again mild asymmetric prominence of the extra-axial space overlying the right frontal lobe when compared to the left. There is no evidence fo r interval subdural hematoma. Findings most likely represent anatomic variant for this patient. Ventricles and cisterns: The ventricles are normal in size and configuration. There is no evidence fo r midline shift or mass effect. Parenchyma: There is no subarachnoid or intraparenchymal hemorrhage. There is no evidence for an acut e infarct or cerebral edema. There is homogeneous attenuation of the brain parenchyma. There are no g ross mass lesions. Osseous structures: There is no evidence for an acute fracture. The visualized paranasal sinuses are clear. The mastoid air cells are clear bilaterally. Soft tissues: There is no evidence for focal soft tissue swelling. IMPRESSION: 1. No acute intracerebral pathology. 2. No change in the mild asymmetric prominence of the extra-axial space overlying the right frontal l obe when compared to the left. This probably represents anatomic variant for this patient. 3. No evidence for interval subdural hematoma. ACT 112: Negative or not required by law. Electronically signed by: Gagan Montez M.D. 02/03/2022 12:02 PM
[2022-02-03] MEDS: ACETAMINOPHEN 325 MG TAB PO PRN (15:32)
--- NOTE | 2022-02-03 21:06 | Hospitalist Progress Note ---
Date of Service February 03, 2022 Assessment & Plan (1) High anion gap metabolic acidosis: Plan: Elevated Lactic acid Possible related to dehydration/Metformin present on admission with generalized weakness. Anion gap on admission peak 24 Unable to obtain ABG on admission despite multiple tried Alcohol level wnl, level less than 3 and UDS negative Will d/c Metformin at discharge Received IVF Anion gap close today at 9 Resolved (2) IVA (acute kidney injury): Plan: Creatinine on admission peak 1.8 Received IVF Creatinine 1.1 today Continue to hold Losartan (3) Electrolyte imbalance: Plan: Potassium on admission 2.4, K today 3.2 Magnesium on admission 1.6, Mag 2 yesterday Phosphorus 3.5 today stable (4) Alcohol abuse: Plan: No history of alcohol withdrawal or DT in the past Last drink was reported 3 weeks ago as per patient Continue thiamine and folic acid Counselling on alcohol cessation Continue monitor closely for sign of alcohol withdrawal or DT (5) Traumatic closed fracture of one rib of left side with minimal displacement with routine healing: Plan: Related to recent falls due to alcohol abuse Continue PT/OT Fall precaution (6) Ambulatory dysfunction: Plan: Falls Continue PT/OT eval Might need inpatient rehab Continue fall precaution (7) Hypertension: Plan: BP stabe Continue to hold Losartan due to IVA Continue monitor BP (8) DMII (diabetes mellitus, type 2): Plan: Hba1c pending Continue to hold Metformin. Plan to Discontinue on discharge Continue lantus and novolog while inpatient Continue monitor BS (9) Migraine: Plan: Continue to hold Topamax in light of adverse effect of CAIs on worsening acidosis. Stable (10) Dyslipidemia: Plan: chronic, stable. Cont Simvastatin (11) Acid reflux: Plan: Continue omeprazole. (12) Anemia: Plan: Unknown baseline. Normal colonoscopy 5 years ago as per patient Hgb on admission 9.4 then dropped to 7.3 Dropped in hgb mostly due to dilution from the IVF received on admission Iron 40, TIBC 220 No sign of active bleeding continue to hold aspirin Hgb 7.8 today Continue monitor CBC (13) Chronic subdural hematoma: Plan: Traumatic subdural hematoma from a fall [address] head showed no acute intracranial hemorrhage. Mild asymmetric prominence of the extra-axial space overlying the right frontal lobe (Reviewed the image with Neuro ( No official consult). No intervention or treatment needed CT head showed no change in the mild asymmetric prominence of the extra-axial space overlying the right frontal lobe when compared to the left. No evidence for interval subdural hematoma. Continue to hold aspirin (14) DVT prophylaxis: Plan: SCDs, hold chemoprophylaxis in setting of recent traumatic head bleed. Full Code Admission and Anticipated Discharge Date Admission Date: February 01, 2022 Subjective Pt was seen and examined for follow up weakness and ambulatory dysfunction Sitting in chair with no acute distress She said that feels a little better today Denies any chest pain, palpitation, dizziness and SOB Review of Systems Review of Systems: All systems reviewed & are unremarkable except as noted in Subjective Physical Exam Physical Exam: General- No acute distress Head- atraumatic Eyes- PERRL, EOMI, ENT- oropharynx clear Neck- supple, no JVD Lungs- clear to auscultation Heart- regular rhythm; no murmur Abdomen- normal bowel sounds, soft, nontender Extremities- no calf tenderness, L elbow tenderness and not able to fully extend it Neuro- alert, oriented x 3; PERRL, EOMI; no facial palsy; no dysarthria Skin- warm, erythematous, scaly rash Results & Data Results & Data ([facility]) Vital Signs (Past 12 Hours) Vital Signs Temp Pulse Pulse Resp BP Pulse Ox 02/03/22 18:44 36.8 C 90 18 100/69 100 02/03/22 16:00 36.8 C 98 H 20 94/67 L 97 02/03/22 15:47 91 H 02/03/22 11:00 36.7 C 91 H 18 102/68 100
[2022-02-04 07:06] LABS: Hematocrit (blood only) 24.2 % (37-47); Hemoglobin 7.7 g/dL (12.0-16.0); Mean Corpuscular Hgb Conc 31.8 g/dL (32-36); Mean Corpuscular Volume 94.2 fL (80-100); Mean Platelet Volume 9.3 fL (7.4-10.4); Platelet Count 251 K/uL (130-400); Red Blood Count 2.57 M/uL (4.2-5.4); White Blood Count 10.39 K/uL (4.8-10.8)
[2022-02-04] MEDS: ACETAMINOPHEN 325 MG TAB PO PRN ×2 (07:45→20:58)
[2022-02-04] MEDS: INSULIN ASPART PER UNIT SC SCH ×4 (08:38→20:59)
[2022-02-04] MEDS: INSULIN GLARGINE SOLOSTAR 100 UNITS/ML 3 ML PEN SC SCH (08:39)
[2022-02-04] MEDS: THIAMINE HCL 100 MG TAB PO SCH (08:40)
[2022-02-04] MEDS: FOLIC ACID 1 MG TAB PO SCH (08:40)
[2022-02-04] MEDS: PANTOprazole 40 MG TAB PO SCH ×2 (08:40→20:58)
[2022-02-04] MEDS ORDERED: INSULIN GLARGINE SOLOSTAR 100 UNITS/ML 3 ML PEN SC SCH (21:00)
--- NOTE | 2022-02-04 21:06 | Hospitalist Progress Note ---
Date of Service February 04, 2022 Assessment & Plan (1) High anion gap metabolic acidosis: Plan: Elevated Lactic acid Possible related to dehydration/Metformin present on admission with generalized weakness. Anion gap on admission peak 24 Unable to obtain ABG on admission despite multiple tried Alcohol level wnl, level less than 3 and UDS negative Will d/c Metformin at discharge Received IVF Anion gap close today at 9 Resolved (2) IVA (acute kidney injury): Plan: Creatinine on admission peak 1.8 Received IVF Creatinine 1.1 today Continue to hold Losartan (3) Electrolyte imbalance: Plan: Potassium on admission 2.4, K today 3.2 Magnesium on admission 1.6, Mag 2 yesterday Phosphorus 3.5 today stable (4) Alcohol abuse: Plan: No history of alcohol withdrawal or DT in the past Last drink was reported 3 weeks ago as per patient Continue thiamine and folic acid Counselling on alcohol cessation Continue monitor closely for sign of alcohol withdrawal or DT (5) Traumatic closed fracture of one rib of left side with minimal displacement with routine healing: Plan: Related to recent falls due to alcohol abuse Continue PT/OT Fall precaution (6) Ambulatory dysfunction: Plan: Falls Continue PT/OT eval - recommended inpatient rehab Continue fall precaution waiting for placement (7) Hypertension: Plan: BP stabe Continue to hold Losartan due to IVA Continue monitor BP (8) DMII (diabetes mellitus, type 2): Plan: Hba1c pending Continue to hold Metformin. Plan to Discontinue on discharge Continue lantus and novolog while inpatient Continue monitor BS (9) Migraine: Plan: Continue to hold Topamax in light of adverse effect of CAIs on worsening acidosis. Stable (10) Dyslipidemia: Plan: chronic, stable. Cont Simvastatin (11) Acid reflux: Plan: Continue omeprazole. (12) Anemia: Plan: Unknown baseline. Normal colonoscopy 5 years ago as per patient Hgb on admission 9.4 then dropped to 7.3 Dropped in hgb mostly due to dilution from the IVF received on admission Iron 40, TIBC 220 No sign of active bleeding continue to hold aspirin Hgb 7.7 today Continue monitor CBC (13) Chronic subdural hematoma: Plan: Traumatic subdural hematoma from a fall [address] head showed no acute intracranial hemorrhage. Mild asymmetric prominence of the extra-axial space overlying the right frontal lobe (Reviewed the image with Neuro ( No official consult). No intervention or treatment needed CT head showed no change in the mild asymmetric prominence of the extra-axial space overlying the right frontal lobe when compared to the left. No evidence for interval subdural hematoma. Continue to hold aspirin (14) DVT prophylaxis: Plan: SCDs, hold chemoprophylaxis in setting of recent traumatic head bleed. Full Code Admission and Anticipated Discharge Date Admission Date: February 01, 2022 Subjective Pt was seen and examined for follow up weakness and ambulatory dysfunction Sitting in chair with no acute distress She said that her mind is getting better Denies any chest pain, palpitation, dizziness and SOB Review of Systems Review of Systems: All systems reviewed & are unremarkable except as noted in Subjective Physical Exam Physical Exam: General- No acute distress Head- atraumatic Eyes- PERRL, EOMI, ENT- oropharynx clear Neck- supple, no JVD Lungs- clear to auscultation Heart- regular rhythm; no murmur Abdomen- normal bowel sounds, soft, nontender Extremities- no calf tenderness, L elbow tenderness and not able to fully extend it Neuro- alert, oriented x 3; PERRL, EOMI; no facial palsy; no dysarthria Skin- warm, erythematous, scaly rash Results & Data Results & Data ([facility]) Vital Signs (Past 12 Hours) Vital Signs Temp Pulse Pulse Resp BP Pulse Ox 02/04/22 19:09 36.9 C 83 18 122/77 100 02/04/22 15:49 37.3 C 82 18 113/77 100 02/04/22 14:19 82 02/04/22 11:58 37 C 94 H 18 101/70 100
[2022-02-05] MEDS: FOLIC ACID 1 MG TAB PO SCH (07:35)
[2022-02-05] MEDS: THIAMINE HCL 100 MG TAB PO SCH (07:35)
[2022-02-05] MEDS: PANTOprazole 40 MG TAB PO SCH ×2 (07:35→20:16)
[2022-02-05] MEDS: INSULIN ASPART PER UNIT SC SCH ×4 (08:39→20:11)
[2022-02-05 09:54] LABS: Hematocrit (blood only) 23.6 % (37-47); Hemoglobin 7.6 g/dL (12.0-16.0); Mean Corpuscular Hgb Conc 32.2 g/dL (32-36); Mean Corpuscular Volume 93.3 fL (80-100); Platelet Count 231 K/uL (130-400); RDW Coefficient of Variation 18.6 % (11.5-14.5); RDW Standard Deviation 62.5 fL (36.4-46.3); Red Blood Count 2.53 M/uL (4.2-5.4); White Blood Count 8.97 K/uL (4.8-10.8)
[2022-02-05] MEDS: FERROUS SULFATE 325 MG TAB PO SCH (11:05)
[2022-02-05] MEDS: ACETAMINOPHEN 325 MG TAB PO PRN ×2 (12:04→20:16)
--- NOTE | 2022-02-05 18:07 | Hospitalist Progress Note ---
Date of Service February 05, 2022 Assessment & Plan (1) High anion gap metabolic acidosis: Plan: Elevated Lactic acid Possible related to dehydration/Metformin present on admission with generalized weakness. Anion gap on admission peak 24 Unable to obtain ABG on admission despite multiple tried Alcohol level wnl, level less than 3 and UDS negative Will d/c Metformin at discharge Received IVF Anion gap close today at 9 Resolved (2) IVA (acute kidney injury): Plan: Creatinine on admission peak 1.8 Received IVF Creatinine 1.1 Will resume Losartan in am Continue monitor BMP (3) Electrolyte imbalance: Plan: Potassium on admission 2.4 Magnesium on admission 1.6, Mag 2 Phosphorus 3.5 stable (4) Alcohol abuse: Plan: No history of alcohol withdrawal or DT in the past Last drink was reported 3 weeks ago as per patient Continue thiamine and folic acid Counselling on alcohol cessation Continue monitor closely for sign of alcohol withdrawal or DT (5) Traumatic closed fracture of one rib of left side with minimal displacement with routine healing: Plan: Related to recent falls due to alcohol abuse CXR showed Possible displaced lateral left eighth rib fracture. Continue incentive spirometry Continue PT/OT Fall precaution (6) Ambulatory dysfunction: Plan: Falls Continue PT/OT eval - recommended inpatient rehab Continue fall precaution waiting for placement (7) Hypertension: Plan: BP stabe Continue to hold Losartan due to IVA Continue monitor BP (8) DMII (diabetes mellitus, type 2): Plan: Most Hba1c 5.8 Continue to hold Metformin. Plan to Discontinue on discharge Hold insulin due to low BS Continue monitor BS (9) Migraine: Plan: Continue to hold Topamax in light of adverse effect of CAIs on worsening acidosis. Stable (10) Dyslipidemia: Plan: chronic, stable. Cont Simvastatin (11) Acid reflux: Plan: Continue omeprazole. (12) Anemia: Plan: Unknown baseline. Normal colonoscopy 5 years ago as per patient Hgb on admission 9.4 then dropped to 7.3 Hgb 7.6 today Dropped in hgb mostly due to dilution from the IVF received on admission Iron 40, TIBC 220 No sign of active bleeding Ok to resume aspirin once hgb stable Follow up with gastro for anemia work up Continue monitor CBC (13) Abnormal CT of the head: Plan: Possible Traumatic subdural hematoma from a fall [address] head showed no acute intracranial hemorrhage. Mild asymmetric prominence of the extra-axial space overlying the right frontal lobe (Reviewed the image with Neuro ( No official consult). No intervention or treatment needed CT head showed no change in the mild asymmetric prominence of the extra-axial space overlying the right frontal lobe when compared to the left. No evidence for interval subdural hematoma. Aspirin has been on hold (14) DVT prophylaxis: Plan: SCDs, hold chemoprophylaxis in setting of possible traumatic head injury and anemia Full Code Disposition waiting for placement Admission and Anticipated Discharge Date Admission Date: February 01, 2022 Subjective Pt was seen and examined for follow up weakness and ambulatory dysfunction Sitting in chair with no acute distress Denies any chest pain, palpitation, dizziness and SOB Review of Systems Review of Systems: All systems reviewed & are unremarkable except as noted in Subjective Physical Exam Physical Exam: General- No acute distress Head- atraumatic Eyes- PERRL, EOMI, ENT- oropharynx clear Neck- supple, no JVD Lungs- clear to auscultation Heart- regular rhythm; no murmur Abdomen- normal bowel sounds, soft, nontender Extremities- no calf tenderness, L elbow tenderness and not able to fully extend it Neuro- alert, oriented x 3; PERRL, EOMI; no facial palsy; no dysarthria Skin- warm, erythematous, scaly rash Results & Data Results & Data ([place]) Vital Signs (Past 12 Hours) Vital Signs Temp Pulse Pulse Resp BP Pulse Ox 02/05/22 15:21 36.8 C 83 20 128/84 100 02/05/22 14:58 83 02/05/22 11:09 37.1 C 104 H 18 110/68 100 02/05/22 07:06 68 02/05/22 06:51 36.9 C 63 18 143/85 H 99
[2022-02-06 07:58] LABS: Hematocrit (blood only) 25.2 % (37-47); Mean Corpuscular Hemoglobin 29.7 pg (25-34); Mean Corpuscular Hgb Conc 31.7 g/dL (32-36); Mean Corpuscular Volume 93.7 fL (80-100); Platelet Count 236 K/uL (130-400); Red Blood Count 2.69 M/uL (4.2-5.4); White Blood Count 9.13 K/uL (4.8-10.8)
[2022-02-06] MEDS: INSULIN ASPART PER UNIT SC SCH ×2 (09:27→11:47)
[2022-02-06] MEDS ORDERED: LOSARTAN POTASSIUM 50 MG TAB PO SCH (09:30)
[2022-02-06] MEDS: FERROUS SULFATE 325 MG TAB PO SCH (09:31)
[2022-02-06] MEDS: PANTOprazole 40 MG TAB PO SCH (09:31)
[2022-02-06] MEDS: FOLIC ACID 1 MG TAB PO SCH (09:32)
[2022-02-06] MEDS: THIAMINE HCL 100 MG TAB PO SCH (09:32)
[2022-02-06] MEDS ORDERED: amLODIPine BESYLATE 5 MG TAB PO SCH (10:00)
[2022-02-06] MEDS: ACETAMINOPHEN 325 MG TAB PO PRN (11:04)
--- NOTE | 2022-02-06 13:39 | Discharge Summary ---
Date of Service February 06, 2022 Admission HPI Per Admitting Provider 56 yo F with fall one week ago, visiting from out of town presented with weakness. She is an alcoholic who reports quitting 3 weeks ago. Since that time she reports falling with trauma to her head 3 weeks ago, and then became progressively weak with numbness in her fingertips bilaterally and started using a walker to get around. This morning she fell again prompting presentation to the ER. After the fall today she cannot straighten her left elbow. She denies any stroke like symptoms including no blurred vision, headache, unilateral weakness, or speech or word finding issues. She reports starting her medica tions back again one week ago including losartan, metformin, topamax and ambien. Workup reveals high anion gap metabolic acidosis. Hypokalemia with K 2.9. Head CT with possible chronic subdural hematoma vs hygroma. CXR with possible displaced eighth rib. Lactate elevated. Possible ingestion toxic alcohol? IVA present. She has anemia with uncertain baseline H/H. She denies any active bleeding at this time. Admission Exam Per Admitting Provider CONSTITUTIONAL: WNWD, vitals as above, generally well-appearing, NAD EYES: EOMI bilaterally, PERRL, normal conjunctivae, no scleral icterus ENT: external ear and nose normal, oropharynx clear NECK: trachea midline, RESPIRATORY: clear to auscultation bilaterally, no crackles, rales or wheezes, normal respiratory effort CARDIOVASCULAR: regular rate and rhythm, S1 and 2 heard without murmurs, gallops or rubs, no JVD, no peripheral edema CHEST: inspection of chest was normal GASTROINTESTINAL: soft, nontender, ND, no guarding MUSCULOSKELETAL: strength 5/5 throughout, cannot straighten her left elbow completely, head is normocephalic and atraumatic, normal palpation of chest wall without tenderness SKIN: warm and dry, erythematous, scaly rash under her left breast that is not painful. Multiple areas of deep purple ecchymosis, hortencia on her right upper arm, and across her chest, and on her right patella. NEUROLOGIC: No facial palsy, no dysarthria. Touch, pain and proprioception normal. CN 2-12 grossly intact, no sensory deficit, normal cognition, normal speech, no tremor PSYCHIATRIC: alert cooperative and oriented to person, place and time. Euthymic mood, makes good eye contact, language grossly intact, recent and remote memory grossly intact. Principal Diagnosis High anion gap metabolic acidosis: IVA (acute kidney injury): Electrolyte imbalance: Alcohol abuse: Traumatic closed fracture of one rib of left side with minimal displacement with routine healing: Ambulatory dysfunction: Hypertension: DMII (diabetes mellitus, type 2): Migraine: Acid reflux: Anemia: Abnormal CT head Discharge Exam General- No acute distress Head- atraumatic Eyes- PERRL, EOMI, ENT- oropharynx clear Neck- supple, no JVD Lungs- clear to auscultation Heart- regular rhythm; no murmur Abdomen- normal bowel sounds, soft, nontender Extremities- no calf tenderness, L elbow tenderness and not able to fully extend it Neuro- alert, oriented x 3; PERRL, EOMI; no facial palsy; no dysarthria Skin- warm, erythematous, scaly rash Discharge Data Allergies Allergy/AdvReac Type Severity Reaction Status Date / Time morphine Allergy Intermediate hives/vomit Unverified 02/01/22 12:43 ing Ordered Studies 02/01/22 09:21 CT head/brain wo con Stat 02/03/22 10:43 CT head/brain wo con Routine CT head/brain wo con CLINICAL HISTORY: Follow-up asymmetric prominence of the extra-axial space on the right when compared to the left COMPARISON STUDY: 02/01/2022 CT DOSE: 537.48 mGy.cm TECHNIQUE: Standard CT of the Brain was performed without IV contrast. A dose lowering technique was utilized adhering to the principles of ALARA. FINDINGS: Extraaxial space: Compared to previous examination, there is again mild asymmetric prominence of the extra-axial space overlying the right frontal lobe when compared to the left. There is no evidence for interval subdural hematoma. Findings most likely represent anatomic variant for this patient. Ventricles and cisterns: The ventricles are normal in size and configuration. There is no evidence for midline shift or mass effect. Parenchyma: There is no subarachnoid or intraparenchymal hemorrhage. There is no evidence for an acute infarct or cerebral edema. There is homogeneous attenuation of the brain parenchyma. There are no gross mass lesions. Osseous structures: There is no evidence for an acute fracture. The visualized paranasal sinuses are clear. The mastoid air cells are clear bilaterally. Soft tissues: There is no evidence for focal soft tissue swelling. IMPRESSION: 1. No acute intracerebral pathology. 2. No change in the mild asymmetric prominence of the extra-axial space overlying the right frontal lobe when compared to the left. This probably represents anatomic variant for this patient. 3. No evidence for interval subdural hematoma. ACT 112: Negative or not required by law. Electronically signed by: Gagan Montez M.D. 02/03/2022 12:02 PM Dictated:02/03/22 1158 Transcribed: 02/03/22 1158 XR wrist LT w scaphoid CLINICAL HISTORY: foosh injury with fall, rule out fracture. Left wrist pain. COMPARISON STUDY: None. FINDINGS: No fracture or dislocation within the left wrist. Mild soft tissue swelling. 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 IMPRESSION: No fracture or dislocation within the left wrist. ACT 112: Negative or not required by law. Electronically signed by: John Verde M.D. 02/01/2022 3:56 PM Dictated:02/01/22 1555 Transcribed: 02/01/22 1555 XR elbow LT 2V CLINICAL HISTORY: fall this am, cannot straighten, rule out fracture. Left elbow pain. COMPARISON STUDY: None. FINDINGS: No fracture or dislocation within the left elbow. No significant elbow effusion. Soft tissues are unremarkable. IMPRESSION: No fracture or dislocation within the left elbow. ACT 112: Negative or not required by law. Electronically signed by: John Verde M.D. 02/01/2022 3:54 PM Dictated:02/01/22 1553 Transcribed: 02/01/22 1553 XR chest 1V portable CLINICAL HISTORY: weakness COMPARISON STUDY: No previous studies for comparison. FINDINGS: Lung volumes are normal. Lungs are clear. There is no pneumothorax or pleural effusion. Cardiac size is normal. Mediastinal contours are normal. There is no evidence for pulmonary edema. Note is made of a possible displaced fracture of a lateral left lower rib, possibly the eighth rib. IMPRESSION: 1. No acute cardiopulmonary findings. 2. Possible displaced lateral left eighth rib fracture. ACT 112: Negative or not required by law. Electronically signed by: Delbert Ratliff M.D. 02/01/2022 9:36 AM Dictated:02/01/2233 Transcribed: 02/01/22932 CT OF THE HEAD WITHOUT CONTRAST CLINICAL HISTORY: weakness of extremities, falls w [facility] 3 wks ago COMPARISON STUDY: No previous studies for comparison. CT DOSE: 958.25 mGy.cm TECHNIQUE: Helical axial images of the head were obtained without IV contrast. Automated exposure control was utilized for the study. A dose lowering technique was utilized adhering to the principles of ALARA. FINDINGS: No acute intracranial hemorrhage or midline shift is present. Ventricular system is unremarkable. Basal cisterns are patent. There is mild asymmetric prominence of the extra-axial space overlying the right frontal lobe. This measures 4 mm in thickness. Exam is mildly compromised by motion artifact. No acute calvarial fracture is identified. IMPRESSION: 1. No acute intracranial hemorrhage. 2. Mild asymmetric prominence of the extra-axial space overlying the right frontal lobe. Although nonspecific, this could reflect a small chronic subdural hematoma or subdural hygroma. Short-term follow-up head CT in 48 to 72 hours is recommended for reevaluation. No midline shift. No mass effect. 3. No calvarial fracture. ACT 112: Negative or not required by law. Electronically signed by: Delbert Ratliff M.D. 02/01/2022 10:02 AM Dictated:02/01/22951 Transcribed: 02/01/22951 Hospital Course (1) High anion gap metabolic acidosis: Elevated Lactic acid Possible related to dehydration/Metformin present on admission with generalized weakness. Anion gap on admission peak 24 Unable to obtain ABG on admission despite multiple tried Alcohol level wnl, level less than 3 and UDS negative Will d/c Metformin at discharge Received IVF Anion gap close today at 9 Resolved (2) IVA (acute kidney injury): Creatinine on admission peak 1.8 Received IVF Creatinine 1.1 Will resume Losartan in am Continue monitor BMP (3) Electrolyte imbalance: Potassium on admission 2.4 Magnesium on admission 1.6, Mag 2 Phosphorus 3.5 stable (4) Alcohol abuse: No history of alcohol withdrawal or DT in the past Last drink was reported 3 weeks ago as per patient Continue thiamine and folic acid Counselling on alcohol cessation Continue monitor closely for sign of alcohol withdrawal or DT (5) Traumatic closed fracture of one rib of left side with minimal displacement with routine healing: Related to recent falls due to alcohol abuse CXR showed Possible displaced lateral left eighth rib fracture. Continue incentive spirometry Continue PT/OT Fall precaution (6) Ambulatory dysfunction: Falls Continue PT/OT eval - recommended inpatient rehab Continue fall precaution Waiting for placement (7) Hypertension: BP stabe Continue to hold Losartan due to IVA Continue monitor BP (8) DMII (diabetes mellitus, type 2): Most Hba1c 5.8 Continue to hold Metformin. Plan to Discontinue on discharge Hold insulin due to low BS Continue monitor BS (9) Migraine: Continue to hold Topamax in light of adverse effect of CAIs on worsening acidosis. Stable (10) Dyslipidemia: chronic, stable. Cont Simvastatin (11) Acid reflux: Continue omeprazole. (12) Anemia: Unknown baseline. Normal colonoscopy 5 years ago as per patient Hgb on admission 9.4 then dropped to 7.3 Hgb 7.6 today Dropped in hgb mostly due to dilution from the IVF received on admission Iron 40, TIBC 220 No sign of active bleeding Ok to resume aspirin once hgb stable Follow up with gastro for anemia work up Continue monitor CBC (13) Abnormal CT of the head: Possible Traumatic subdural hematoma from a fall [address] head showed no acute intracranial hemorrhage. Mild asymmetric prominence of the extra-axial space overlying the right frontal lobe (Reviewed the image with Neuro ( No official consult). No intervention or treatment needed CT head showed no change in the mild asymmetric prominence of the extra-axial space overlying the right frontal lobe when compared to the left. No evidence for interval subdural hematoma. Aspirin has been on hold, will resume (14) DVT prophylaxis: SCDs, hold chemoprophylaxis in setting of possible traumatic head injury and anemia Full Code Disposition waiting for placement Total Time Total Time Spent Total Time Spent (In Minutes): 35 minutes Discharge Plan Discharge Items Patient Disposition: Transfer Inpatient Rehab Fac Reason For Visit: FALL, IVA, METABOLIC ACIDOSIS,HYPOMAGNESEMIA Discharge Diagnosis: High anion gap metabolic acidosis: IVA (acute kidney injury): Electrolyte imbalance: Alcohol abuse: Traumatic closed fracture of one rib of left side with minimal displacement with routine healing: Ambulatory dysfunction: Hypertension: DMII (diabetes mellitus, type 2): Migraine: Acid reflux: Anemia: Abnormal CT head Activity: Resume your previous activity Non-emergency contact: Primary Care Provider Call non-emergency contact if: you have any medication questions and your symptoms worsen Follow-up/Referrals: Bran Sanders DO [Primary Care Provider] - Diet: Carb Consistent or DM2 Addtl Attending Provider Instructions: Follow up with your primary care provider once discharge from rehab Follow up with gastroenterology for anemia work up Continue physical and occupational therapy Check BMP within 1 week to monitor your electrolytes and renal function Check CBC with 1 week to monitor your hemoglobin Ok to resume aspirin 81mg once hemoglobin stable Please avoid any NSAID for now such as motrin, aleve, naproxen, ibuprofen, advil, .....due to risk of bleeding Counselling on alcohol cessation Fall precaution Pending Studies at Discharge: No Stand-Alone Forms: My [facility] Skilled Items Patient informed of condition?: Yes DNR: No Discharge Level of Care: Acute rehab Communicable Disease: No Discharge Prognosis: Stable Lines: None Urinary Catheter: No Medications and DC Order Prescriptions: New thiamine HCl (vitamin B1) 100 mg Tablet 100 mg PO QAM 30 Days Qty: 30 RF: 0 folic acid 1 mg Tablet 1 mg PO QAM 30 Days Qty: 30 RF: 0 ferrous sulfate 325 mg (65 mg iron) Tablet,Delayed Release (Dr/Ec) 325 mg PO QAM 30 Days Qty: 30 RF: 0 Continued losartan 50 mg tablet 50 mg PO QAM RF: 0 aspirin 81 mg Tablet,Delayed Release (Dr/Ec) 81 mg PO QAM RF: 0 simvastatin 40 mg tablet 40 mg PO HS RF: 0 omeprazole 20 mg capsule,delayed release(DR/EC) 20 mg PO BID RF: 0 zolpidem 10 mg tablet 10 mg PO HS PRN (Reason: Sleep) RF: 0 topiramate 50 mg tablet 50 mg PO HS RF: 0 Emgality Pen 120 mg/mL pen injector 120 mg SUBCUT MONTHLY RF: 0 metformin 500 mg tablet extended release 24 hr 500 mg PO BID RF: 0 amlodipine 10 mg tablet 10 mg PO RF: 0 Discontinued diclofenac sodium 100 mg tablet extended release 24 hr 100 mg PO HS RF: 0 Discharge Orders: Discharge Order (Routine); Ordered 02/06/22 Ordered By: Mikaela Gutierrez/Other Patient Handouts: Managing Type 2 Diabetes Admission Data Admit Date/Time: 02/01/22 13:29 Attending Provider: Mikaela Claros Admit Provider: Tiffany Stringer Primary Care Provider: Bran Sanders Other Providers: Tiffany Stringer Other Interventions: Discharge Summary Assessment (RN) Last Done: 02/06/22 15:58
--- NOTE | 2022-02-13 13:04 | Coding Query ---
CODING QUERY To promote full compliance with coding requirements relating to patient care, provider participation is requested in all cases of hand ii blocker uncertainty. Please assist us with the question(s) below: Coding Question(s): There is documentation of "Chronic Subdural Hematoma Traumatic subdural hematoma from a fall 3 weeks ago, chronic appearing on imaging", beginning on the H&P and the H&P documents, "Repeat head CT in 48 hours recommended. Currently she has no gross focal neurologic deficits and her symptoms of weakness and paresthesias are likley related to her acid base disorder from her medications above. Hold daily ASA 81mg as no absolute indication at this time and do not want to contribute to head bleed", and Chronic Subdural Hematoma is documented in Progress Notes, and on the DS, there is documentation, " Abnormal CT of the head: Possible Traumatic subdural hematoma from a fall [address] head showed no acute intracranial hemorrhage. Mild asymmetric prominence of the extra-axial space overlying the right frontal lobe (Reviewed the image with Neuro ( No official consult). No intervention or treatment needed CT head showed no change in the mild asymmetric prominence of the extra-axial space overlying the right frontal lobe when compared to the left. No evidence for interval subdural hematoma. Aspirin has been on hold, will resume". Please specify below, in your clinical opinion, regarding Chronic Subdural Hematoma. ( ) Chronic Subdural Hematoma was treated and/or Monitored during this admission with repeat CT and close monitoring of possible neurological symptoms as well as holding aspirin ( ) Chronic Subdural Hematoma was Not treated and/or Monitored during this admission ( ) Other: Please Specify Physician's Response(s): Possible Traumatic subdural hematoma since repeat CT did not show it. Findings most likely represent anatomic variant for this patient. Thank you Saida Núñez Principal Diagnosis: "that condition established after study, to be chiefly responsible for occasioning the admission of the patient to the hospital for care." Co-Existing Principal Diagnosis: "when two or more diagnoses equally meet the criteria for principal diagnosis as determined by the circumstances of admission, diagnostic work up, and/or therapy provided, and the Alphabetic Index, Tabular List, or another coding guideline does not provide sequencing direction, any one of the diagnoses may be sequenced first." "When the physician has documented what appears to be a current diagnosis in the body of the record, but has not included the diagnosis in the final diagnostic statement, the physician should be asked whether the diagnosis should be added." (Source [facility]oding [facility] 2 QTR90. p3-4) [facility]
== END 2022-02-06 15:59 | DRG 640 ==
LOC: ED 08:59 → SUATTDRO 13:29 → 2N 13:29